=== PATIENT | female | born 1950 | race Two or more races ===

== ENCOUNTER → 2020-06-10 | Outpatient (CLI) | payer OTHER | END | disposition home or self-care (01) | LOC: OFIC 805 16:15 | PROVIDERS: ATTEND Otolaryngology Otology & Neurotology | DX: H93.13 Tinnitus, bilateral (principal); H91.13 Presbycusis, bilateral ==

== ENCOUNTER 2020-09-23 14:12 | Outpatient (CLI) | payer OTHER | END 2020-09-23 14:34 | disposition home or self-care (01) | LOC: OFIC 805 14:12 | PROVIDERS: ATTEND Otolaryngology Otology & Neurotology | DX: H93.13 Tinnitus, bilateral (principal); H91.13 Presbycusis, bilateral ==